=== PATIENT | female | born 1950 | race Caucasian/White ===

== ENCOUNTER → 2016-09-30 | Day surgery (SDC) | payer MEDICARE, OTHER ==
[~2016-09-30] VITALS: Ht 157.5 cm; Wt 130.6 kg
[~2016-09-30] MED LIST: ACET-2766 PO; ATRV10T PO; CLOT30SO TP; DICL100G8 TOPICAL; DILT240C89 PO; FURO-128 PO; GLIM4TAB2 PO; IBUP-1827 PO; KEN25CR TP; LISI10TA PO; Lactated Ringer's 1,000 ML IV ONE; Lactated Ringer's 1,000 ML IV SCH; Lidocaine PF 1% 30 mL Inj ONE; METF500T4 PO; MTC5T PO; MetoCLOpramide 5 mg/mL 2 mL Inj IVPUSH PRN; OMEG-38 PO; OMEP20CA11 PO; OXYC1TAB24 PO; Ondansetron 2 mg/mL 2 mL Inj IVPUSH PRN; Propofol 10,000 mCg/mL 20 mL Inj ONE; SULF1TAB7 PO; [UNRECOGNIZED DRUG - OTHER] PO
[2016-09-30 11:51] VITALS: BP 139/74; PULSE 89; RESP 19; O2SAT 95
--- NOTE | 2016-09-30 13:06 | PCM.HPANE ---
Patient Data Surgeon Admitting Provider: Attending Provider:Diana Deng MD Primary Care Physician:Blanca Murphy PA-C Other Provider:Bruno Fields Anesthesia Reason for Visit Colon Cancer Screening, Gerd Ht/WT & BMI Height (Feet): 5 Height (Inches): 2 Weight (Kilograms): 130.63 Body Mass Index 52.00 Allergies Coded Allergies: No Known Allergies (Verified Allergy, Unknown, 09/29/16) Past Anesthesia History Anesthesia History: Denies:: Abnormal Airway, Anesthesia Reactions, Difficult Intubation, Fam Anesthesia Reaction, Fam Malignant Hypertherm, Malignant Hyperthermia Diabetes History Hx Diabetes?: Yes Type of Diabetes: Type II Glycemic Control: Oral Medication Current Bedside Blood Glucose: 98 MRSA MRSA: No Medications Home Meds Incl Beta Matt: No Active Scripts Ibuprofen 600 Mg Dsyegf046 Mg PO Q6 PRN For Mild Pain #60 TABLET Prov:Jasen Chavis MD 03/05/16 Reported Medications Glimepiride 4 Mg Tablet4 Mg PO DAILYAC #30 TABLET Ref 0 09/29/16 Diclofenac Gel (Voltaren Gel)100 Gm Tube1 Applic TOPICAL QID #1 TUBE 1% 03/04/16 Triamcinolone Acet (Triamcinolone Acetonide Cream)1 Applic/0.25 Gm Cr1 Applic TP BID #60 GM Ref 0 0.1% 03/04/16 Omeprazole 20 Mg Capsule.dr20 Mg PO DAILY Ref 0 03/04/16 Metformin 500 Mg [place]103 Mg PO BID Ref 0 03/04/16 Lisinopril 10 Mg Xezezv61 Mg PO DAILY 30 Days Ref 0 03/04/16 [Invermectin] No Conflict Check24 Mg PO ONCE PRN PRN MR IN 1 WEEK 03/04/16 Furosemide (Lasix)40 Mg Yjjviz70 Mg PO DAILY 30 Days Ref 0 03/04/16 [place]-3/Dha/Epa/Fish Oil (Fish Oil 1,000 mg Softgel)1 Each Capsule2 Each PO DAILY 03/04/16 Diltiazem ER 240 Mg Cap.er.65k711 Mg PO DAILY Ref 0 03/04/16 Clotrimazole 1% 30 Ml Solution1 Applic TP BID 03/04/16 Atorvastatin (Lipitor)10 Mg Tab10 Mg PO DAILY Ref 0 03/04/16 Acetaminophen (Tylenol Arthritis)650 Mg Tablet.er650 Mg PO Q6H PRN PRN 03/04/16 Discontinued Reported Medications Metoclopramide 5 Mg Tablet5 Mg PO BID Ref 0 09/29/16 Sulfamethoxazole/Trimeth 800-160 mg (Bactrim DS)1 Each Tablet1 Tablet PO BID Ref 0 03/04/16 Discontinued Scripts oxyCODONE-Acetaminophen 5-325 mg 1 Each Tablet1-2 Tab PO Q4 PRN For Moderate Pain #40 TABLET Prov:Jasne Chavis MD 03/05/16 History History of ENT Problems?: Yes HEENT History: Denies:: Abnormal Airway Difficult Intubation Dysphagia Hearing Problem Denture Type: None Teeth Condition: Within Normal Limits Hx of Heart Problems?: Yes Cardiovascular History: Positive for:: Hypertension Denies:: AICD Atrial Fibrillation Chest Pain Heart Murmur Irregular Heartbeat Pacemaker Valvular Heart Disease Hx of Respiratory Problem?: No Respiratory History: Denies:: Asthma COPD Cough Hemoptysis Pneumonia Tuberculosis Use of C-PAP Machine Hx Neurologic Problems?: No Neurological History: Denies:: CVA Hx of GI Problems?: Yes Hx of Problems?: No Female Hx: Denies:: Currently Problems with Breasts? Skin History: Denies:: History Skin Disorders? Pressure Ulcers Hx Musculoskeletal Problems?: Yes Musculoskeletal History: Positive for:: Musculoskeletal Trauma (s/p rt foot rpr) Denies:: Fibromyalgia Joint Replacement Hx of Psycho/Social Problems?: No Psycho Social History: Denies:: Anxiety Hx Depression Hx Surgeries?: Yes (HYSTERECTOMY, APPY, FOOT SX X2, BONE SPURS OFF OF HEELS, TONSILS) Hx Any Other Health Problems?: Yes Other History: Denies:: Cancer Endocrine Disease Hospitalization Thyroid Disease History Blood Transfusions: Denies:: Blood Transfusions Hx Diabetes: YesBedside Blood Glucose: 98 Hx Alcohol Use: NoHx Substance Use: NoHave You Smoked inLast 12 mo: No Stop/Bang Treated for Sleep Apnea?: No Do You Have a CPAP Machine?: No S-Snoring: Do You Snore Loudly: Yes T-Tired: feel tired, fatigued: Yes O-Obsered: Observed not breath: Yes P-Blood Pressure: treated: Yes B- Body Mass Index > 35 kg/m2: Yes A- Age over 50: Yes N- Neck Large Circumference: Yes G- Gender Male: No JOANN Total Score: 7 JOANN Risk Assessment: High Risk, =/>3 Yes Risk Assessment Category Category 1A: Patient has history of documented sleep apnea, and HAS NOT received any narcotic, sedative or anesthesia administration during this stay. Category 1B: Patient has history of documented sleep apnea, and HAS received any narcotic , sedative or anesthesia administration during this stay Category 2: Patient has SUSPECTED Obstructive Sleep Apnea, and HAS received any narcotic , sedative or anesthesia administration during this stay. Category 3: Patient has SUSPECTED Obstructive Sleep Apnea and HAS NOT received narcotic, sedative or anesthesia administration during this stay. Category 4: Outpatient in Procedural Areas with known sleep apnea or who screen positive for High Risk via the STOP/BANG questionnaire. Exam Exam Vital Signs Vital Signs Date Time Temp Pulse Resp B/P Pulse Ox O2 Delivery O2 Flow Rate FiO2 09/30/16 11:51 36.9 89 19 139/74 95 General Appearance: Alert, Oriented X3, Cooperative HEENT/AIRWAY: MP 3, Neck Movement (Thick), Mouth Opening (Wide) Lungs: Clear to Auscultation, Normal Air Movement Heart: Regular Rate/Rhythm, Normal S1, Normal S2 Meds/Labs/Diagnostics Admission Meds Current Medications Lactated Ringer's (Lr) 1,000 ml @ 10 mls/hr Q24H ONCE IV Last administered on 09/30/16t 12:08; Start 09/30/16 at 06:00; Stop 10/01/16 at 05:59 Bedside Blood Glucose: 98 Plan Impression Patient chart reviewed, patient interviewed and anesthestic plan with risks, benefits, and alternatives discussed, and informed consent obtained. NPO per Anesth. Guidelines: Yes ASA Physical Status: ASA3 Severe Disease Anesthetic Plan: MAC Bene/Risks/Altern/Consents: Yes HP Complete Prior to Induction: Yes John Dutton MD Sep 30, 2016 13:05
[2016-09-30 13:55] VITALS: BP 145/81; PULSE 100; RESP 16; O2SAT 97
--- NOTE | 2016-09-30 14:04 | PCM.ANEP1 ---
Post Anesthesia PACU Phase 1 Assessment Date of Service: Sep 30, 2016 Vital Signs Vital Signs Date Time Temp Pulse Resp B/P Pulse Ox O2 Delivery O2 Flow Rate FiO2 09/30/16 13:55 100 16 145/81 97 Room Air 09/30/16 11:51 36.9 89 19 139/74 95 Anesthetic Administered: MAC Level of Alertness: Awake, talking MOORE's with Equal Strength: Yes Pain: No Nausea or Vomiting: No CV Function & Hydration Stable: Yes Airway Device: Oxygen Delivery: Simple Mask Lungs: Normal Air Movement PACU Phase 2 Assessment Complications: No Follow up Care: N/A Patient Instructions Provided: N/A John Dutton MD Sep 30, 2016 14:04
[2016-09-30 14:05] VITALS: BP 142/66; PULSE 91; RESP 16; O2SAT 98
[2016-09-30 14:14] VITALS: BP 160/89; PULSE 93; RESP 16; O2SAT 99
--- NOTE | 2016-09-30 14:28 | ENDO ---
[address] [address] ENDOSCOPY PROCEDURE PATIENT: JAMES CHILD : 1950 MR#: [id number] ADMIT: 09/30/2016 JOB ID: [id number] DATE: 09/30/2016 PROCEDURE: Esophagogastroduodenoscopy. INDICATION: Gastroesophageal reflux. Please see Dr. Hiren Dutton's anesthesia report for details regarding ASA classification, Mallampati score, and medications. INSTRUMENT USED: GIF H 180 J. PROCEDURE DETAILS: After informed consent was obtained, the patient was brought into the GI suite, where she was placed on oxygen via nasal cannula and monitored with continuous pulse oximeter, telemetry and blood pressure monitoring. A time-out was performed. Then, she was placed in the left lateral decubitus position and medications were administered for sedation. The standard EGD scope was inserted through the bite block and advanced under direct visualization to the second portion of duodenum. FINDINGS: 1. Normal appearing duodenal bulb, first and second portion. 2. Normal-appearing pylorus, antrum and gastric body. 3. Retroflexed views in the gastric body revealed a normal-appearing cardia and fundus. 4. The GE junction was at approximately 41 cm and appeared regular. 5. Normal appearing esophagus. IMPRESSION: Normal esophagogastroduodenoscopy examination to second portion of the duodenum. RECOMMENDATIONS: Await loss and reflux precautions. COMPLICATIONS: None. ESTIMATED BLOOD LOSS: 0. PROCEDURE PERFORMED: Colonoscopy. INDICATIONS: Colon cancer screening. Please see above for ASA classification, Mallampati score, and medications. INSTRUMENT USED: PCF H 180 AL. PREPARATION QUALITY: Was fair. PROCEDURE DETAILS: After completion of the EGD examination, the patient was turned and then a digital rectal examination was performed, which was unremarkable. The colonoscope was then inserted into the rectum and advanced under direct visualization to the cecum, which was identified by the presence of the ileocecal valve and appendiceal orifice. Once the cecum was reached, the colonoscope was withdrawn back to the rectum. Mucosa and lumen were examined. In the rectum, retroflexion was performed. Following retroflexion, remaining air in the rectum was suctioned, and the procedure was completed. FINDINGS: 1. In the sigmoid colon, there is a diminutive polyp that was removed with cold biopsy forceps. 2. In the distal rectum, there was an approximately 2-3 mm sessile polyp that was removed with cold biopsy forceps. 3. Scattered diverticula were seen throughout the sigmoid colon. 4. Internal hemorrhoids were noted on retroflexion. IMPRESSION: 1. Sigmoid polyp. 2. Rectal polyp. 3. Sigmoid diverticulosis. 4. Internal hemorrhoids. RECOMMENDATIONS: 1. Repeat colonoscopy pending polyp pathology results. 2. Fiber rich diet. 3. Followup in GI clinic. COMPLICATIONS: None. ESTIMATED BLOOD LOSS: Less than 5 mL.
--- NOTE | 2016-10-06 11:25 | PATH ---
SURGICAL PATHOLOGY Attending Physician:John Boyd CASE STATUS: Signed Out PATIENT NAME: JAMES CHILD PID: [id number] : 1950 DATE COLLECTED:09/30/2016 00:00 SPECIMEN: 1: Colon, Polyp 2: Rectum, Biopsy CLINICAL HISTORY: 1. SIGMOID COLON POLYP 2. RECTAL POLYP FINAL DIAGNOSIS: 1. Sigmoid Colon Polyp: Polypoid-shaped fragments of colon mucosa associated with prominent mucosal lymphoid aggregates on multiple serial histologic sections. Negative for dysplasia and malignancy. 2. Rectal Polyp: Changes consistent with a benign inflammatory polyp. Negative for dysplasia and malignancy. ICD10: K62.1 GROSS DESCRIPTION: The specimen is received in two formalin filled containers labeled with the patient's name. 1). The specimen is sublabeled "sigmoid colon polyp" and consists of 2 portions of tissue which aggregate to 0.3 x 0.3 x 0.2 CM. The specimen is entirely submitted in cassette 1A. 2). The specimen is sublabeled "rectal polyp" and consists of 2 tiny portions of tissue which aggregate to 0.2 x 0.2 x 0.2 CM. The specimen is entirely submitted in cassette 2A. 10/01/2016 [facility] ICD-9 CODES: CPT CODES: 1: 08726 2: 65240 Electronically Signed Out Dom Figueroa MD [facility] Pathology [facility] [address], [place] [address] Technical component performed at [facility], [facility] [address], [address]
== END | disposition home or self-care (01) ==
LOC: END 01:01
PROVIDERS: ATTEND Internal Medicine Gastroenterology
DX: Z12.11 Encounter for screening for malignant neoplasm of colon (principal); K62.1 Rectal polyp; K63.5 Polyp of colon; K64.8 Other hemorrhoids; K57.30 Diverticulosis of large intestine without perforation or abscess without bleeding; K21.9 Gastro-esophageal reflux disease without esophagitis; K59.00 Constipation, unspecified; I10 Essential (primary) hypertension; E78.5 Hyperlipidemia, unspecified; E11.9 Type 2 diabetes mellitus without complications; E66.01 Morbid (severe) obesity due to excess calories; Z85.42 Personal history of malignant neoplasm of other parts of uterus; Z90.710 Acquired absence of both cervix and uterus; Z79.84 Long term (current) use of oral hypoglycemic drugs; Z68.43 Body mass index [BMI] 50.0-59.9, adult
CPT/HCPCS: 43235; 45380; J7120